=== PATIENT | male | born 1995 | race Native Hawaiian/Other Pacific Islander ===

== ENCOUNTER 2021-11-28 18:48 | Emergency (ER) | payer OTHER ==
[~2021-11-28] VITALS: Ht 182.9 cm; Wt 98.7 kg
[2021-11-28 18:48] VITALS: BP 160/90
[2021-11-28] MEDS ORDERED: PERCOCET PO (19:06)
[2021-11-28] MEDS ORDERED: METH4PACK PO (19:06)
[2021-11-28] MEDS ORDERED: AMOX500C PO (19:06)
[2021-11-28] MEDS ORDERED: CLINDAMYCIN 150MG CAPSULE PO ONE (21:00)
[2021-11-28] MEDS ORDERED: GABAPENTIN 300 MG CAP PO ONE (21:00)
[2021-11-28] MEDS ORDERED: CLEO300C2 PO (21:05)
[2021-11-28] MEDS ORDERED: NEUR300C PO (21:05)
== END 2021-11-28 21:32 | disposition home or self-care (01) ==
LOC: M ED 18:48
DX: K08.89 Other specified disorders of teeth and supporting structures (principal)

== ENCOUNTER 2023-04-12 12:01 | Emergency (ER) | payer OTHER ==
[~2023-04-12] VITALS: Ht 185.4 cm; Wt 112.7 kg
[~2023-04-12 12:01] MED LIST: AMOX500C PO; CLEO300C2 PO; METH4PACK PO; NEUR300C PO; PERCOCET PO
[2023-04-12] MEDS ORDERED: LUNE2TAB28 PO (12:12)
[2023-04-12] MEDS ORDERED: FLUO1TAB3 PO (12:12)
[2023-04-12] MEDS ORDERED: ACETAMINOPHEN 500 MG TAB PO ONE (12:45)
[2023-04-12] MEDS ORDERED: methocarbamoL 500 MG TAB PO ONE (12:45)
[2023-04-12] MEDS ORDERED: predniSONE 20 MG TAB PO ONE (12:45)
[2023-04-12] MEDS ORDERED: PRED20TA PO (15:19)
[2023-04-12] MEDS ORDERED: METH-1164 PO (15:19)
[2023-04-12 15:31] VITALS: BP 153/80; TEMP 97.5; O2SAT 100
== END 2023-04-12 15:39 | disposition home or self-care (01) ==
LOC: M ED 12:01 → EDBD 12:01 → M ED 15:39
DX: M54.50 Low back pain, unspecified (principal); M54.30 Sciatica, unspecified side; G47.00 Insomnia, unspecified; Z79.1 Long term (current) use of non-steroidal anti-inflammatories (NSAID); Z91.013 Allergy to seafood; Z79.52 Long term (current) use of systemic steroids; Z79.899 Other long term (current) drug therapy
CPT/HCPCS: 72148; 99284; J7512